=== PATIENT | female | born 1995 | race Caucasian/White ===

== ENCOUNTER → 2016-04-26 | Outpatient (REF) | payer OTHER ==
[~2016-04-26] MED LIST: OMEP20TA PO; [UNRECOGNIZED DRUG - CODE] PO; antidepressant; birth control
== END ==
LOC: LAB 09:17
PROVIDERS: ATTEND Nurse Practitioner Family
DX: Z11.3 Encounter for screening for infections with a predominantly sexual mode of transmission (principal)
CPT/HCPCS: 86592

== ENCOUNTER → 2016-08-17 | Outpatient (REF) | payer OTHER | LOC: LAB 13:42 | PROVIDERS: ATTEND Nurse Practitioner Family | DX: N89.8 Other specified noninflammatory disorders of vagina (principal) | CPT/HCPCS: 87210 ==